=== PATIENT | female | born 1955 | race Caucasian/White ===

== ENCOUNTER → 2018-05-01 | Outpatient (CLI) | payer BC | END | disposition home or self-care (01) | LOC: LABPAT 15:26 | PROVIDERS: ATTEND Orthopaedic Surgery | DX: Z01.812 Encounter for preprocedural laboratory examination (principal) | CPT/HCPCS: 87070 ==

== ENCOUNTER 2018-05-06 10:25 | Inpatient (IN) | payer BC ==
[~2018-05-06 10:25] MED LIST: ACETAMINOPHEN TAB 500 MG TAB PO ONE; DEXAMETHASONE SOD PHOSPHATE 10 MG/ML 1 ML VIAL IV ONE; HYDROmorphone 0.5 MG/0.5 ML SYRINGE IVP PRN; MELOXICAM 7.5 MG TAB PO ONE; MIDAZOLAM (PF) 2 MG/2 ML VIAL IV PRN; ONDANSETRON 4 MG/2 ML VIAL IVP ONE; ROPIVACAINE 246.25 MG, EPINEPHrine 0.5 MG, KETOROLAC 30 MG, cloNIDine HCL/PF 80 MCG, WA... MISCELLANE ONE; SCOPOLAMINE 1.5MG/72HR PATCH TRANSDERM ONE; TRANEXAMIC ACID 1,000 MG in SODIUM CHLORIDE 0.9% 100 ML IVPB ONE; ceFAZolin IN SWFI 2 GM/20 ML SYRINGE IVP ONE
[2018-05-06] MEDS ORDERED: LIDOCAINE 1% 20 ML VIAL (10MG/ML) FOR IV START INTRADERMA ONE (12:08)
[2018-05-06] MEDS: LACTATED RINGERS 1,000 ML IV SCH (12:08)
[2018-05-06] MEDS ORDERED: fentaNYL (PF) 50 MCG/ML 2 ML AMP IV ONE (12:28)
[2018-05-06] MEDS ORDERED: ROPIVACAINE 1,100 MG, SODIUM CHLORIDE 0.9% 500 ML 330 ML MISCELLANE PRN ×2 (13:01)
--- NOTE | 2018-05-06 13:03 | P.ONQ ---
Anesthesiology Proc Note - PNB - Peripheral Nerve Block Performed Right Adductor Canal Infusion Time Out Performed: Yes Procedure Start Time: 12:28 Indication: Acute Post-Operative Pain Specifically requested for management of pain by DrPerico: Dawson Bundy Sedation Type: Sedate with meaningful contact maintained Preparation: Sterile Prep Position: Supine Catheter Depth at Skin (cm): 8 Catheter: Indwelling Needle Types: Other (see comment) (Pajunk) Needle Size: 100mm (4") Needle Gauge: 18 Technique: Ultrasound Injectate: 0.5% Ropivacaine (see comment for volume) (20 cc) Blood Aspirated: No Pain Paresthesia on Injection Noted: No Resistance on Injection: Normal Events: Uneventful and Well Tolerated
[2018-05-06] MEDS ORDERED: LIDOCAINE 1% INJ 10MG/ML (20 ML MDV) ONE (13:05)
[2018-05-06] MEDS ORDERED: MIDAZOLAM 2 MG/2 ML VIAL ONE (13:05)
[2018-05-06] MEDS ORDERED: PROPOFOL 10 MG/ML 20 ML VIAL IV ONE (13:05)
[2018-05-06] MEDS ORDERED: fentaNYL (PF) 50 MCG/ML 2 ML AMP ONE (13:05)
[2018-05-06] MEDS ORDERED: TRANEXAMIC ACID 1,000 MG/10 ML VIAL ONE (13:05)
[2018-05-06] MEDS ORDERED: SODIUM CHLORIDE 0.9% 100 ML BAG ONE (13:05)
[2018-05-06] MEDS ORDERED: ONDANSETRON 4 MG/2 ML VIAL IVP PRN (13:29)
[2018-05-06] MEDS ORDERED: HYDROcodone/APAP 5-325MG 1 EACH TAB PO PRN (13:29)
[2018-05-06] MEDS ORDERED: HYDROmorphone 0.5 MG/0.5 ML SYRINGE IVP PRN ×2 (13:29)
[2018-05-06] MEDS ORDERED: NALOXONE 0.4 MG/ML 1 ML VIAL IV PRN (13:29)
[2018-05-06] MEDS ORDERED: DIAZEPAM 5 MG TAB PO PRN (13:29)
[2018-05-06] MEDS ORDERED: HYDROmorphone 1 MG/ML 1 ML SYRINGE IVP PRN (13:29)
[2018-05-06] MEDS ORDERED: MAGNESIUM HYDROXIDE 2,400 MG/10 ML CUP PO PRN (13:29)
[2018-05-06] MEDS ORDERED: hydrOXYzine PAMOATE 25 MG CAP PO PRN (13:29)
[2018-05-06] MEDS ORDERED: ceFAZolin 3,000 MG in SODIUM CHLORIDE 0.9% IRRIGATIO 3,000 ML IRRIGATION ONE ×4 (13:48)
[2018-05-06] MEDS ORDERED: LACTATED RINGERS 1,000 ML IV ONE ×2 (14:26)
--- NOTE | 2018-05-06 14:42 | P.OP ---
Date of Procedure: 05/06/18 Preoperative Diagnosis: Severe osteoarthritis right knee Postoperative Diagnosis: Severe osteoarthritis right knee Procedure(s) Performed: Right total knee arthroplasty Implants: Nayak [employer]hew Journey II CR Oxinium cruciate retaining femoral component size 5, right [employer]ak [employer] Journey right nonporous tibial baseplate size 4 [employer] Journey II, XLPE Deep Dished articular insert, size 9 mm, Size 3- 4 right [employer] Journey BCS resurfacing oval patellar component, 29 mm All components were cemented using Palacos R bone cement.. The articulation is Oxinium on polyethylene. Anesthesia: spinal Surgeon: Dawson Bundy Flour Inspector #1: Rajani Tobias Estimated Blood Loss (ml): 25 Pathology: other (Bone and cartilage) Condition: stable Disposition: PACU Indications for Procedure: After failure of conservative treatment we discussed the surgical and nonsurgical treatment options at length. Patient wishes to proceed with a total knee arthroplasty. Complications specific to this procedure were discussed at length, including but not limited to infection, bleeding, stiffness , and nerve injury. Patient is aware of all these complications and informed consent was obtained Operative Findings: The operative findings are consistent with severe osteoarthritis of the right knee Description of Procedure: Patient was seen in the preoperative area consent was reviewed and operative site was marked with a skin marker. An adductor canal pain catheter was placed by anesthesia in the preoperative area. Patient was then brought to the operating room and given preoperative antibiotics intravenously. A spinal anesthetic was administered by the anesthesia department. A tourniquet was placed on the upper thigh and the lower extremity was prepped and draped in usual sterile fashion. A gram of transexamic acid was given. A universal timeout was then performed which confirmed the patient's name, surgical site, ALLERGIES, and consent. The lower extremity was then exsanguinated and tourniquet was inflated to 250 mmHg. A standard and anterior midline approach to the knee was performed. The skin and subcutaneous tissue was dissected down to the patellar tendon. A medial parapatellar arthrotomy was then performed. The knee was then extended, the patellar was everted, and the knee was again flexed. Anterior horns of both menisci were excised, and a release was performed to the posterior medial aspect of the knee. On gross visual inspection, there was complete loss of articular cartilage in the medial and patellofemoral joint spaces. There was also significant cartilage damage in the lateral compartment. There were multiple periarticular osteophytes which were then removed with a Ronguer. The femoral canal was then opened with the appropriate drill, and the intramedullary femoral cutting guide was then placed and set for 5 of valgus. The distal femoral cutting block was then pinned in place, and the distal femur was then cut. The cutting block was then removed and the cut was checked for flatness. Next, the sizing guide was then placed and set for 3 external rotation based off of the epicondylar axis and Whitesides line. After the femur was sized, the appropriate 4-in-1 cutting block was then pinned in place. The anterior condyles were cut without notching. The posterior and chamfer cuts were performed while protecting the collateral ligaments. The cutting block was then removed, and the femoral canal was plugged with autologous bone. Attention was then directed to the tibia. The remaining ACL was removed with a Ronguer, and the tibia was then gently subluxed forward with a large bent knee retractor. Any remaining menisci was excised. The posterior lateral corner was cauterized in order to cauterize the lateral geniculate artery. The extra medullary tibial cutting guide was then placed, set for the appropriate rotation , slope, and depth of resection. The proximal tibia cutting guide was then pinned in place. Proximal tibia was then cut and sized. Next trials were then placed with the appropriate-sized insert. The knee was able to fully extend and flex to 130 and was stable throughout all range of motion. The knee was then extended, patella everted. Patella was then measured, and then using an osteotomy guide, the patella was cut at the appropriate level. The patella was then measured and drilled and the patella trial was then placed. The knee was then taken through range of motion with the patella trial and the patella tracked normally. The knee was then extended patella trial was then removed and the patella was everted. Knee was then flexed and lug holes were drilled through the femoral trial and the femoral trial was then removed. The tibial was then exposed, and the tibial broach guide was then pinned in place after it was set for the appropriate rotation to allow for the most coverage without overhang. The tibia was then reamed and broached. The cut surfaces of bone were then irrigated with pulsatile lavage. The posterior structures were injected with the ropivacaine solution. The knee was also irrigated with Irrisept solution. The components were then opened, the cement was mixed, and the components were then cemented in place. The cement was allowed to harden with the knee in full extension. While the cement was hardening, the remaining soft tissues were then injected with a ropivacaine solution, which consisted of 246.25 mg of ropivacaine, 0.5 mg of epinephrine, 30 mg of Toradol, 80 g of clonidine, and 48.45 mL of sterile water, for a total of 100 mL of fluid injected. After the cemented hardened. The tourniquet was released, and hemostasis was obtained. A second gram of transexamic acid was given. The knee was again irrigated. The knee was again taken through range of motion and found to be stable throughout all range of motion of 0-130 , and the patella tracked normally. The fascia was then closed with #2 strata fix suture. The subcutaneous tissue was closed with 3-0 Vicryl and 3-0 strata fix. Dermabond glue was used for the skin and placed with the knee in flexion. The patient was placed in a sterile silver dressing. Patient was then transferred to recovery room in stable condition. The radiology practitioner assistant NICOLAS Harris was required due the complexity surgery and the need for a skilled surgical product sales consultant. She assisted in positioning, draping, retraction, and closure of the wound.
--- NOTE | 2018-05-06 15:31 | XR ---
EXAMINATION TYPE: XR knee limited RT DATE OF EXAM: 05/06/2018 COMPARISON: NONE HISTORY: 62-year-old female evaluation for postoperative abnormality and alignment TECHNIQUE: 2 views FINDINGS: Images show placement of right total knee arthroplasty. Both distal femoral and proximal tibial compo nents of the prosthesis appear well seated without periprosthetic fracture. Alignment grossly anatomi c. Anterior soft tissue swelling with soft tissue air as well as intra-articular air related to recen t operation. IMPRESSION: Uncomplicated postoperative appearance right total knee arthroplasty.
[2018-05-06 16:43] VITALS: BMI 34.6
[2018-05-06] MEDS: SODIUM CHLORIDE 0.9% 1,000 ML IV SCH (16:44)
[2018-05-06] MEDS: ASPIRIN 325 MG TAB PO SCH (20:25)
[2018-05-06 20:42] VITALS: RESP 16
[2018-05-06] MEDS: ceFAZolin IN SWFI 2 GM/20 ML SYRINGE IVP SCH (20:55)
[2018-05-06] MEDS ORDERED: SENNOSIDES-DOCUSATE SODIUM 1 EACH TAB PO SCH (21:00)
[2018-05-06] MEDS: HYDROcodone/APAP 5-325MG 1 EACH TAB PO PRN (21:02)
[2018-05-07] MEDS: SODIUM CHLORIDE 0.9% 1,000 ML IV SCH (04:06)
[2018-05-07] MEDS: ceFAZolin IN SWFI 2 GM/20 ML SYRINGE IVP SCH (04:22)
[2018-05-07] MEDS: LACTATED RINGERS 1,000 ML IV SCH (05:22)
[2018-05-07 08:26] LABS: Basophils % (A) 0 %; Eosinophils # (A) 0.1 k/uL (0-0.7); Eosinophils % (A) 1 %; HCT 34.9 % (34.0-46.0); HGB 11.5 gm/dL (11.4-16.0); Lymphocytes # (A) 0.8 k/uL (1.0-4.8); Lymphocytes % (A) 10 %; MCH 29.9 pg (25.0-35.0); MCV 90.7 fL (80.0-100.0); Monocytes # (A) 0.3 k/uL (0-1.0); Monocytes % (A) 3 %; Neutrophils # (A) 7.2 k/uL (1.3-7.7); Neutrophils % (A) 85 %; Platelet Count 198 k/uL (150-450); RBC 3.85 m/uL (3.80-5.40); RDW 13.3 % (11.5-15.5); WBC 8.4 k/uL (3.8-10.6)
[2018-05-07 08:39] VITALS: BP 120/72; PULSE 67; TEMP 98.4
[2018-05-07] MEDS: ASPIRIN 325 MG TAB PO SCH (08:48)
[2018-05-07] MEDS ORDERED: MELOXICAM 7.5 MG TAB PO SCH (09:00)
--- NOTE | 2018-05-07 09:14 | P.DS ---
Providers Date of admission: 05/06/18 11:12 Expected date of discharge: 05/07/18 Attending physician: Dawson Bundy Consults: 05/06/18 13:29 Consult Physician Routine Consulting Provider: Don Merida Consult Reason/Comments: medical management Do you want consulting provider notified?: Yes 05/06/18 16:06 Consult Physician Routine Consulting Provider: Francisco Mirza Consult Reason/Comments: medical management Do you want consulting provider notified?: Already Contacted Primary care physician: Don Merida - Discharge Diagnosis(es) (1) Osteoarthritis of right knee Current Visit: Yes Status: Acute (2) Status post total right knee replacement Current Visit: Yes Status: Acute Hospital Course: This is a 62-year-old female with known history of degenerative arthritis of the right knee. The patient presents for evaluation. After discussion and consideration patient elects to proceed with total knee arthroplasty. The patient is seen preoperatively by Dr. Bundy and medically cleared for surgery by their primary care physician. Patient is admitted to [facility] on 05/06/2018 for total knee arthroplasty. The procedures performed without complication or sequelae. The patient is doing well postoperatively. Labs and vital signs are stable on day of discharge. On day of discharge patient's knee incision is healing well. There is minimal erythema. There is no drainage noted at this time. There is minimal soft tissue swelling to the knee. Patient has full foot and ankle motion without difficulty or pain. Calf is soft and nontender to palpation. Neurovascular status to the right lower extremity is intact. Patient is discharged home in good condition. Opioid start talking form is reviewed and signed at patient bedside. Please see med rec for accurate list of home medications. Plan - Discharge Summary Discharge Rx Participant: Yes New Discharge Prescriptions: New Aspirin 325 mg PO BID #60 tab HYDROcodone/APAP 5-325MG [[place] 5-325] 1 - 2 tab PO Q6HR PRN #56 tab PRN Reason: Pain Sennosides [Senokot] 1 tab PO BID #60 tablet No Action traMADol HCL [Ultram] 50 mg PO Q6HR PRN PRN Reason: Pain diphenhydrAMINE [Benadryl] 25 mg PO BID PRN PRN Reason: allergies Citalopram Hydrobromide [CeleXA] 30 mg PO DAILY Melatonin 5 mg PO HS PRN PRN Reason: sleep Discharge Medication List Citalopram Hydrobromide [CeleXA] 30 mg PO DAILY 04/30/18 [History] Melatonin 5 mg PO HS PRN 04/30/18 [History] diphenhydrAMINE [Benadryl] 25 mg PO BID PRN 04/30/18 [History] traMADol HCL [Ultram] 50 mg PO Q6HR PRN 04/30/18 [History] Aspirin 325 mg PO BID #60 tab 05/07/18 [Rx] HYDROcodone/APAP 5-325MG [[place] 5-325] 1 - 2 tab PO Q6HR PRN #56 tab 05/07/18 [ Rx] Sennosides [Senokot] 1 tab PO BID #60 tablet 05/07/18 [Rx] Follow up Appointment(s)/Referral(s): Dawson Bundy DO [Doctor of Osteopathic Medicine] - 2 Weeks Ambulatory/Diagnostic Orders: Continuous Passive Motion (CPM) Machine [DME.AMB1] Time Frame: 3 Weeks, Location : None Selected Activity/Diet/Wound Care/Special Instructions: Weightbearing as tolerated with a walker. CPM 5-6h daily. Leave dressing intact. May be removed by home care nurse or by patient in 10 days. May shower with dressing on. Please follow up with [facility] and call with any questions or concerns, . Discharge Disposition: HOME WITH HOME HEALTH SERVICES
[2018-05-07] MEDS: HYDROcodone/APAP 5-325MG 1 EACH TAB PO PRN (14:59)
--- NOTE | 2018-05-08 07:49 | CONS ---
CONSULTATION DATE OF CONSULTATION: 05/07/2018 REASON FOR CONSULTATION: Medical management requested by Dr. Bundy. CONSULTATION: This is a very pleasant 62-year-old patient of Dr. Merida. Chronic stable medical conditions include osteoarthritis, psoriasis, depression and insomnia. The patient has undergone right total knee arthroplasty. Pain is controlled. No nausea, vomiting. No chest pain. Did work with physical therapy. I saw this patient earlier today. REVIEW OF SYSTEMS: CONSTITUTIONAL: None. HEENT: None. RESPIRATORY: None. CARDIOVASCULAR: None. GASTROINTESTINAL: None. GENITOURINARY: None. MUSCULOSKELETAL: Arthritic pain in different joints. HEMATOLOGICAL: None. LYMPHATICS: None. PSYCHIATRY: Depression, controlled. NEUROLOGICAL: None. DERMATOLOGICAL: present. PAST MEDICAL HISTORY: Osteoarthritis, skin disorder, skin cancer, psoriasis, insomnia. PAST SURGICAL HISTORY: Appendectomy, left knee replaced, arthroscopy of both knees, ovarian cyst removed, D and C, skin cancer removed. PSYCH HISTORY: Depression. SOCIAL HISTORY: Alcohol occasionally. Does not smoke. . FAMILY HISTORY: Cancer, type unknown. PHYSICAL EXAMINATION: Temperature 98.4, pulse 67, respiration 16, blood pressure 120/72, pulse ox 98% on room air. GENERAL APPEARANCE: Well built, BMI of 34.5, sitting up, not in distress. EYES: Pupils equal, conjunctivae normal. NECK: JVD not raised. RESPIRATORY: Effort normal. Lungs are clear. CARDIOVASCULAR: First and second sounds are normal, no edema. ABDOMEN: Soft, nontender. Liver and spleen not palpable. PSYCHIATRY: Alert and oriented x3. Mood and affect normal. NEUROLOGICAL: Pupils equal, grossly intact. Power and sensation grossly intact. Also patient's BMI is 34.5. ASSESSMENT: 1. Right total knee arthroplasty. 2. Psoriasis. 3. Primary osteoarthritis. 4. Depression, not otherwise specified. 5. Obesity, body mass index of 34.5. 6. Chronic insomnia. PLAN: Home medications are resumed. Patient getting aspirin for DVT prophylaxis. The patient should see a dietitian for weight loss measures. Otherwise, pain is controlled. Should follow up with a family doctor upon discharge. Thank you, Dr. Bundy. MMODL / IJN: [id number] /
--- NOTE | 2018-05-08 21:22 | P.PN ---
Progress Note - Text 05/06 698 62-year-old female status post total knee replacement by Dr. Dawson bay. Patient has an On-Q pump for postop pain control with the solution running at 8 mL an hour with a VAS of 0. Plan to continue On-Q pump infusion
== END 2018-05-07 18:00 | disposition home health service (06) | DRG 470 ==
LOC: 2ORMAIN 11:12 → 4SSUR 15:46
PROVIDERS: ADMIT Orthopaedic Surgery; ATTEND Orthopaedic Surgery
PROC: 0SRC069 Replacement of Right Knee Joint with Oxidized Zirconium on Polyethylene Synthetic Substitute, Cemented, Open Approach (ICD-10-PCS; principal; 2018-05-06 13:00)
DX: M17.11 Unilateral primary osteoarthritis, right knee (principal); L40.9 Psoriasis, unspecified; F32.9 Major depressive disorder, single episode, unspecified; M21.161 Varus deformity, not elsewhere classified, right knee; G47.00 Insomnia, unspecified; E66.9 Obesity, unspecified; Z68.34 Body mass index [BMI] 34.0-34.9, adult; Z87.891 Personal history of nicotine dependence; Z88.1 Allergy status to other antibiotic agents; Z79.899 Other long term (current) drug therapy; Z82.49 Family history of ischemic heart disease and other diseases of the circulatory system; Z85.828 Personal history of other malignant neoplasm of skin; Z90.49 Acquired absence of other specified parts of digestive tract
CPT/HCPCS: 85025; 88300